=== PATIENT | female | born 1940 | race Caucasian/White ===

== ENCOUNTER 2022-03-16 18:00 | Inpatient (IN) | payer OTHER ==
[~2022-03-16] VITALS: Ht 162.6 cm; Wt 71.2 kg
[2022-03-16] MEDS ORDERED: ACETAMINOPHEN ES 500 MG TABLET PO ONE (18:15)
[2022-03-16] MEDS ORDERED: IV NORMAL SALINE 1000 ML BAG IV ONE ×2 (18:15→19:00)
[2022-03-16] MEDS ORDERED: ACETAMINOPHEN ES 500 MG TABLET ONE (18:17)
[2022-03-16] MEDS ORDERED: LISINOPRIL (18:23)
[2022-03-16] MEDS ORDERED: COREG (18:23)
[2022-03-16] MEDS ORDERED: METFORMIN (18:23)
[2022-03-16] MEDS ORDERED: SIMVASTATIN (18:23)
[2022-03-16] MEDS ORDERED: MECLIZINE (18:23)
--- NOTE | 2022-03-16 18:23 | NUR ---
PT UNABLE TO RECALL MED DOSAGES.
[2022-03-16 18:30] LABS: HEMATOCRIT 36.9 % (31.2-41.9); MEAN CORPUSCULAR HEMOGLOBIN 28.8 uug (24.7-32.8); MEAN CORPUSCULAR VOLUME 85.9 fL (75.5-95.3); PLATELET COUNT (AUTO) 255 K/uL (179-408)
[2022-03-16 18:39] LABS: CARBON DIOXIDE 25 mmol/L (21-32); CHLORIDE 97 mmol/L (98-107); CREATININE 1.3 mg/dL (0.6-1.3); GLUCOSE 168 mg/dL (74-106); POTASSIUM 3.3 mmol/L (3.5-5.1); UREA NITROGEN, BLOOD 26 mg/dL (7-18)
[2022-03-16] MEDS ORDERED: ONDANSETRON 4 MG/2 ML VIAL IV ONE (18:45)
[2022-03-16 18:48] LABS: ALANINE AMINOTRANSFERASE 25 U/L (14-59); ALKALINE PHOSPHATASE 80 U/L (50-136); ASPARTATE AMINOTRANSFERASE 26 U/L (15-37); BILIRUBIN,DIRECT 0.3 mg/dL (0.0-0.2); BILIRUBIN,TOTAL 0.9 mg/dL (0.2-1.0); TOTAL PROTEIN, SERUM 7.8 g/dL (6.4-8.2)
[2022-03-16] MEDS ORDERED: POTASSIUM CHLORIDE 20 MEQ POWDER PACKET PO ONE (19:00)
[2022-03-16] MEDS ORDERED: CEFTRIAXONE 1 G in IV DEXTROSE 5% 50 ML IV ONE ×2 (19:00→20:00)
[2022-03-16] MEDS ORDERED: ASPIRIN 81 MG TAB.CHEW PO ONE (19:00)
--- NOTE | 2022-03-16 19:11 | NUR ---
urine collected via straight cath per MD verbal order. specimen sent to lab
[2022-03-16] MEDS ORDERED: CEFTRIAXONE /D5W 50ML IVPB **ER PYXIS IV ONE ×2 (19:13→19:59)
[2022-03-16] MEDS ORDERED: ASPIRIN 81 MG TAB.CHEW ONE (19:13)
[2022-03-16] MEDS ORDERED: POTASSIUM CHLORIDE 20 MEQ POWDER PACKET ONE (19:14)
[2022-03-16] MEDS ORDERED: ONDANSETRON 4 MG/2 ML VIAL ONE (19:14)
[2022-03-16 19:17] LABS: *BILIRUBIN,URIN NEGATIVE (NEGATIVE); *CLARITY,URINE SLIGHTLY CLOUDY (CLEAR); *COLOR,URINE YELLOW (YELLOW); *KETONES,URINE 1+ (NEGATIVE); *UROBILINOGEN,URINE 0.2 E.U./dl (NORMAL); LEUKOCYTE ESTERASE ,URINE 2+ (NEGATIVE); NITRITE, URINE POSITIVE (NEGATIVE); PH,URINE 5.5 (5.0-8.0); UGLUCOSE NEGATIVE (NEGATIVE)
[2022-03-16 19:20] LABS: *BLOOD, URINE TRACE (NEGATIVE)
--- NOTE | 2022-03-16 19:47 | NUR ---
hand off report given to Margaux HERNANDEZ, pt in stable condition.
--- NOTE | 2022-03-16 19:50 | NUR ---
Report received form Lori HERNANDEZ. First clinical contact with pt. Pt resting on gurney, a&ox3, resp even/unlabored, skin w/p/d. Pt IV to right hand noted to be self removed by patient. New 20G IV placed to left forearm. Pt given IV rocephin and second bag of IVF started. No s/s of acute distress noted. Awaiting dispo/admission bed.
[2022-03-16 20:31] LABS: BACTERIA,URINE MANY /HPF (NONE SEEN); SQUAMOUS EPITHELIAL CELL,UR FEW /HPF (NONE SEEN); WBC,URINE TNTC /HPF (0-3)
[2022-03-16] MEDS ORDERED: MECL-159 PO (21:24)
[2022-03-16] MEDS ORDERED: METF-440 PO (21:24)
[2022-03-16] MEDS ORDERED: SIMV10TA98 PO (21:24)
[2022-03-16] MEDS ORDERED: FERR325T28 PO (21:24)
[2022-03-16] MEDS ORDERED: CEFTRIAXONE 1 G in IV DEXTROSE 5% 50 ML IV SCH (23:00)
[2022-03-16] MEDS ORDERED: ONDANSETRON 4 MG/2 ML VIAL IV PRN (23:00)
[2022-03-17] MEDS ORDERED: ACETAMINOPHEN 325 MG TABLET ONE (02:26)
[2022-03-17] MEDS: ACETAMINOPHEN 325 MG TABLET PO PRN ×4 (02:44→20:52)
[2022-03-17] MEDS: IV NS 1000 ML 1,000 ML IV PRN ×2 (02:45→20:52)
--- NOTE | 2022-03-17 02:56 | NUR ---
Pt noted to be shivering. Pt oral temp 102.1. Pt given PO tylenol and maintanence IVF started. Will reassess in 30 minutes.
[2022-03-17 04:26] LABS: HEMATOCRIT 32.4 % (31.2-41.9); MEAN CORPUSCULAR HEMOGLOBIN 28.3 uug (24.7-32.8); MEAN CORPUSCULAR VOLUME 85.3 fL (75.5-95.3); PLATELET COUNT (AUTO) 208 K/uL (179-408)
[2022-03-17 04:33] LABS: ALANINE AMINOTRANSFERASE 18 U/L (14-59); ALKALINE PHOSPHATASE 71 U/L (50-136); ASPARTATE AMINOTRANSFERASE 23 U/L (15-37); BILIRUBIN,TOTAL 0.7 mg/dL (0.2-1.0); CARBON DIOXIDE 27 mmol/L (21-32); CHLORIDE 102 mmol/L (98-107); CREATININE 1.4 mg/dL (0.6-1.3); GLUCOSE 185 mg/dL (74-106); PHOSPHOROUS 2.6 mg/dL (2.5-4.9); POTASSIUM 3.8 mmol/L (3.5-5.1); TOTAL PROTEIN, SERUM 6.6 g/dL (6.4-8.2); UREA NITROGEN, BLOOD 26 mg/dL (7-18)
[2022-03-17 04:41] LABS: THYROID STIMULATING HORMONE 0.481 mIU/mL (0.358-3.740)
[2022-03-17 04:45] LABS: MAGNESIUM 1.2 mg/dL (1.8-2.4)
--- NOTE | 2022-03-17 04:48 | NUR ---
Pt no longer shivering. Oral temp noted to decrease s/p PO tylenol. No s/s of acute distress noted.
[2022-03-17] MEDS: PANTOPRAZOLE SODIUM 40 MG VIAL IV SCH (09:07)
[2022-03-17] MEDS ORDERED: PANTOPRAZOLE SODIUM 40 MG VIAL ONE (09:08)
[2022-03-17] MEDS ORDERED: ASPIRIN 81 MG TAB.CHEW ONE (09:15)
[2022-03-17] MEDS: ASPIRIN 81 MG TAB.CHEW PO SCH (09:16)
--- NOTE | 2022-03-17 10:00 | NUR ---
Pt pulled HL accidently when walking to bathroom.
[2022-03-17] MEDS ORDERED: MAGNESIUM SULFATE/D5W 100 ML ONE (10:51)
[2022-03-17] MEDS: MAGNESIUM SULFATE/D5W 100 ML IV SCH ×4 (10:54→13:46)
[2022-03-17] MEDS ORDERED: KETOROLAC TROMETHAMINE 15 MG INJ IM ONE (11:00)
[2022-03-17] MEDS ORDERED: MAGNESIUM SULFATE/D5W 300 ML ONE (12:15)
[2022-03-17] MEDS ORDERED: ACETAMINOPHEN ES 500 MG TABLET ONE (12:48)
--- NOTE | 2022-03-17 14:30 | NUR ---
2 Decho in progress.
--- NOTE | 2022-03-17 17:50 | NUR ---
Dinner tray provided, pt ate 100%, NO c/o pain, VSS.
--- NOTE | 2022-03-17 18:05 | NUR ---
Dr Marie in to see pt.
--- NOTE | 2022-03-17 20:25 | NUR ---
Transfered to 3rd floor via gurny with no distress noted.
[2022-03-17 20:30] VITALS: BP 160/87
[2022-03-17] MEDS ORDERED: CEFTRIAXONE /D5W 50ML IVPB **ER PYXIS IV ONE (21:14)
[2022-03-17] MEDS: CEFTRIAXONE 1 G in IV DEXTROSE 5% 50 ML IV SCH (21:49)
[2022-03-17] MEDS ORDERED: LISI1TAB29 PO (21:55)
[2022-03-17] MEDS ORDERED: CARV12.5 PO (21:55)
[2022-03-17 22:00] VITALS: BP 150/65
[2022-03-17] MEDS: CARVEDILOL 12.5 MG TABLET PO SCH (22:51)
[2022-03-17] MEDS: HYDROCHLOROTHIAZIDE 25 MG TABLET PO SCH (22:51)
[2022-03-17] MEDS: LISINOPRIL 20 MG TABLET PO SCH (22:51)
[2022-03-18 00:30] VITALS: BP 125/70
[2022-03-18 05:01] VITALS: BP 128/56
--- NOTE | 2022-03-18 05:10 | NUR ---
admitted last night to room 314; son at bedside; admission procedures done; Pt rested well in between care; had fever last night at 100.2F, tylenol administered and cooling measures done; son called for BP meds doses, relayed to Dr Kingston and started on Coreg and lisinopril/hctz; bp now more controlled and is afebrile pt has been having urinary frequency and been assisted to bathroom multiple times; safety maintained; pt instructed to use call light for assistance; needs attended. Addendum: 03/18/22 at 0524 by MAURICIO MUKHERJEE RN IV fr ER on right AC not working; new IV placed to left hand; also per pt's son do VS to left arm only.
[2022-03-18 05:28] VITALS: BP 146/56
[2022-03-18 07:02] LABS: HEMATOCRIT 30.3 % (31.2-41.9); MEAN CORPUSCULAR HEMOGLOBIN 28.7 uug (24.7-32.8); MEAN CORPUSCULAR VOLUME 85.6 fL (75.5-95.3); PLATELET COUNT (AUTO) 196 K/uL (179-408)
[2022-03-18 07:14] LABS: BILIRUBIN,TOTAL 0.4 mg/dL (0.2-1.0); CREATININE 1.1 mg/dL (0.6-1.3); MAGNESIUM 1.7 mg/dL (1.8-2.4); PHOSPHOROUS 1.8 mg/dL (2.5-4.9); POTASSIUM 3.2 mmol/L (3.5-5.1); TOTAL PROTEIN, SERUM 6.4 g/dL (6.4-8.2)
[2022-03-18] MEDS: CARVEDILOL 12.5 MG TABLET PO SCH ×2 (08:10→17:04)
[2022-03-18] MEDS: HYDROCHLOROTHIAZIDE 25 MG TABLET PO SCH (08:10)
[2022-03-18] MEDS: ASPIRIN 81 MG TAB.CHEW PO SCH (08:10)
[2022-03-18] MEDS: LISINOPRIL 20 MG TABLET PO SCH (08:11)
[2022-03-18] MEDS: PANTOPRAZOLE SODIUM 40 MG VIAL IV SCH (08:23)
[2022-03-18] MEDS ORDERED: MAGNESIUM OXIDE 400 MG TABLET PO ONE (09:00)
[2022-03-18] MEDS ORDERED: POTASSIUM PHOSPHATE MM 15 MMOL in IV NORMAL SALINE 250 ML IV ONE (10:00)
[2022-03-18 12:00] VITALS: BP 131/73
[2022-03-18 16:34] VITALS: BP 139/89
[2022-03-18] MEDS: CEFTRIAXONE 1 G in IV DEXTROSE 5% 50 ML IV SCH (20:15)
[2022-03-18 21:14] VITALS: BP 122/73
[2022-03-18] MEDS: ACETAMINOPHEN 325 MG TABLET PO PRN (21:14)
[2022-03-18] MEDS ORDERED: QUETIAPINE FUMARATE 25 MG TABLET PO ONE (22:30)
[2022-03-19 04:30] VITALS: BP 177/88
[2022-03-19 06:36] VITALS: BP 150/52
[2022-03-19] MEDS: HYDROCHLOROTHIAZIDE 25 MG TABLET PO SCH (08:25)
[2022-03-19] MEDS: CARVEDILOL 12.5 MG TABLET PO SCH ×2 (08:25→17:05)
[2022-03-19] MEDS: ASPIRIN 81 MG TAB.CHEW PO SCH (08:25)
[2022-03-19] MEDS: LISINOPRIL 20 MG TABLET PO SCH (08:26)
[2022-03-19] MEDS: PANTOPRAZOLE SODIUM 40 MG TABLET.DR PO SCH (09:07)
[2022-03-19] MEDS: AMLODIPINE 5 MG TABLET PO SCH (10:30)
[2022-03-19 11:45] VITALS: BP 134/63
[2022-03-19] MEDS: NUTRISOURCE FIBER 4 GM PACKET PO SCH ×2 (12:00→16:25)
[2022-03-19] MEDS: GLUCERNA SHAKE 237 ML CAN PO SCH (12:00)
[2022-03-19] MEDS: PROTEIN SUPPLEMENT (PROSTAT) 30 ML LIQUID PO SCH (12:00)
[2022-03-19 16:40] VITALS: BP 129/56
[2022-03-19 20:00] VITALS: BP 126/50
[2022-03-19] MEDS ORDERED: levoFLOXacin 500 MG TABLET PO ONE (21:00)
[2022-03-19] MEDS ORDERED: TEMAZEPAM 7.5 MG CAPSULE PO PRN (22:45)
[2022-03-20] MEDS: ACETAMINOPHEN 325 MG TABLET PO PRN (02:12)
[2022-03-20 04:00] VITALS: BP 134/88
[2022-03-20] MEDS: PANTOPRAZOLE SODIUM 40 MG TABLET.DR PO SCH (06:08)
[2022-03-20 07:45] LABS: CREATININE 0.8 mg/dL (0.6-1.3); MAGNESIUM 1.7 mg/dL (1.8-2.4); PHOSPHOROUS 3.8 mg/dL (2.5-4.9); POTASSIUM 3.5 mmol/L (3.5-5.1)
[2022-03-20 07:53] VITALS: BP 148/55
[2022-03-20 08:02] LABS: HEMATOCRIT 32.2 % (31.2-41.9); MEAN CORPUSCULAR HEMOGLOBIN 28.9 uug (24.7-32.8); MEAN CORPUSCULAR VOLUME 87.2 fL (75.5-95.3); PLATELET COUNT (AUTO) 245 K/uL (179-408)
[2022-03-20] MEDS: HYDROCHLOROTHIAZIDE 25 MG TABLET PO SCH (08:05)
[2022-03-20] MEDS: ASPIRIN 81 MG TAB.CHEW PO SCH (08:05)
[2022-03-20] MEDS: LISINOPRIL 20 MG TABLET PO SCH (08:05)
[2022-03-20] MEDS: CARVEDILOL 12.5 MG TABLET PO SCH (08:05)
[2022-03-20] MEDS: AMLODIPINE 5 MG TABLET PO SCH (08:06)
[2022-03-20] MEDS: NUTRISOURCE FIBER 4 GM PACKET PO SCH (08:06)
[2022-03-20] MEDS: PROTEIN SUPPLEMENT (PROSTAT) 30 ML LIQUID PO SCH (08:06)
[2022-03-20] MEDS: GLUCERNA SHAKE 237 ML CAN PO SCH (08:06)
[2022-03-20] MEDS ORDERED: levoFLOXacin 500 MG TABLET PO SCH (09:00)
[2022-03-20] MEDS ORDERED: MAGNESIUM OXIDE 400 MG TABLET PO ONE (11:15)
[2022-03-20 12:00] VITALS: BP 141/58
[2022-03-20] MEDS ORDERED: PANT40TA49 PO (12:40)
[2022-03-20] MEDS ORDERED: ACID1TAB4 PO (12:40)
[2022-03-20] MEDS ORDERED: ASPI-618 PO (12:40)
[2022-03-20] MEDS ORDERED: AMLO-212 PO (12:40)
[2022-03-20] MEDS ORDERED: LEVO500T90 PO ×3 (12:40→12:47)
[2022-03-20] MEDS ORDERED: levoFLOXacin 500 MG TABLET PO ONE (12:54)
--- NOTE | 2022-03-20 13:34 | NUR ---
dc orders received noted and carried out,dc instruction given to the pt and her son .per pt she will follow up with her pcp in one week pt left the facility via private car in stable condition
[2022-03-20] MEDS ORDERED: levoFLOXacin 250 MG TABLET PO SCH (21:00)
== END 2022-03-20 13:35 | disposition home or self-care (01) | DRG 871 ==
LOC: ER 18:02 → TRANSITION 03-17 07:00 → TELE3 03-17 20:02 → MEDSURG3 03-18 16:52
PROVIDERS: ADMIT Internal Medicine; ATTEND Internal Medicine
DX: A41.51 Sepsis due to Escherichia coli [E. coli] (principal); G92.8 Other toxic encephalopathy; N17.0 Acute kidney failure with tubular necrosis; I21.A1 Myocardial infarction type 2; N39.0 Urinary tract infection, site not specified; E11.9 Type 2 diabetes mellitus without complications; E87.6 Hypokalemia; I10 Essential (primary) hypertension; Z20.822 Contact with and (suspected) exposure to COVID-19; M19.90 Unspecified osteoarthritis, unspecified site; E66.9 Obesity, unspecified; Z68.26 Body mass index [BMI] 26.0-26.9, adult; D50.9 Iron deficiency anemia, unspecified; R93.1 Abnormal findings on diagnostic imaging of heart and coronary circulation; Z79.84 Long term (current) use of oral hypoglycemic drugs
CPT/HCPCS: 36415; 71045; 76775; 82378; 83550; 83605; 83735; 84100; 84443; 84484; 85025; 85730; 87040; 87077; 87086; 93005; 93307; A4663; A9150; C9113; G0378; J0696; J2405; J3475; J3490; J7040